=== PATIENT | male | born 1955 ===

== ENCOUNTER 2016-11-15 06:18 | Observation (INO) | payer MEDICARE ==
[2016-08-12 08:23] VITALS: BMI 30.5
[2016-11-15] MEDS ORDERED: Propofol 10 mg/ml Inj (20 ML) ONE (07:52)
[2016-11-15] MEDS ORDERED: Midazolam 2 MG/2 ML VIAL ONE (07:52)
[2016-11-15] MEDS: Bupivacaine 0.5% Inj(30mL) ONE ×2 (08:04→10:31)
[2016-11-15] MEDS: Iohexol 240 200 ML IJ ONE ×2 (08:04→08:50)
[2016-11-15] MEDS ORDERED: Lactated Ringer's 1,000 ML IV ONE ×2 (08:10→09:52)
[2016-11-15] MEDS: cefTRIAXone IV 1 gm in Dextros 50 ML IVPB ONE ×2 (08:13→08:20)
[2016-11-15] MEDS ORDERED: Rocuronium 10 mg/ml (10 ml) ONE (10:25)
[2016-11-15] MEDS ORDERED: Phenylephrine 10 mg/ml Inj ONE (10:26)
[2016-11-15] MEDS ORDERED: Gentamicin 80 mg in 0.9% NS 160 MG/200 ML BAG IVPB ONE (10:30)
--- NOTE | 2016-11-15 11:00 | PCM.SURG1 ---
Surgeon's Initial Post Op Note - Surgeon's Notes Surgeon: james farrar Gambling Dealer: haley cote Type of Anesthesia: General Endo Pre-Operative Diagnosis: L renal calculus Operative Findings: same Post-Operative Diagnosis: same Operation Performed: cysto, urethral dialtion, L ureteral catheterization. L percutaneous nephrostomy tube access. L percutaneous nephrolithotomy, ultrasonic lithotripsy. L nephrostogram Specimen/Specimens Removed: urine. L renal stones Estimated Blood Loss: EBL {In ML}: 250 Blood Products Given: N/A Post-Op Condition: Good Date of Surgery/Procedure: 11/15/16 Time of Surgery/Procedure: 10:45
[2016-11-15] MEDS ORDERED: Morphine 4 MG/ML VIAL IVP PRN (11:04)
[2016-11-15] MEDS: HYDROmorphone 0.5 mg/0.5 ml ISec IVP PRN ×2 (11:45→13:00)
--- NOTE | 2016-11-15 11:45 | RAD ---
PROCEDURE: Intraoperative fluoroscopy HISTORY: LT. RENAL CALCULUS COMPARISON: Not available TECHNIQUE: Intraoperative fluoroscopy was provided for percutaneous left nephrostomy. Total time of fluoroscopy was 319.2 seconds. FINDINGS: Multiple fluoroscopic spot films are submitted demonstrating placement of left percutaneous nephro ureterostomy. Films are on file for review. IMPRESSION: Fluoroscopy provided.
[2016-11-15] MEDS: Dextrose 5%/0.45% NS 1,000 ML IV SCH ×2 (14:00→21:59)
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
[2016-11-15 20:07] LABS: BASO % 0.1 % (0.0-2.0); EOS % 0.1 % (0.0-4.0); HEMATOCRIT 38.5 % (35.0-51.0); LYMPH # 1.1 K/uL (1.0-4.3); LYMPH % 8.2 % (20.0-40.0); MEAN CELL VOLUME 88.8 fL (80.0-94.0); MEAN CORPUSCULAR HGB CONC 34.9 g/dL (33.0-37.0); MEAN PLATELET VOLUME 9.3 fL (7.2-11.7); MONO # 0.7 K/uL (0.0-0.8); MONO % 5.3 % (0.0-10.0); PLATELET COUNT 191 K/uL (130-400); RED CELL DISTRIBUTION WIDTH 12.7 % (11.5-14.5); WHITE BLOOD COUNT 13.3 K/uL (4.8-10.8)
[2016-11-15 20:17] LABS: CHLORIDE 104 mmol/L (98-107); SODIUM 137 mmol/L (132-148)
[2016-11-15 20:20] LABS: ALB/GLOB RATIO 1.3 (1.0-2.1); ALKALINE PHOSPHATASE 58 U/L (38-126); ALT/SGPT 47 U/L (21-72); AST/SGOT 26 U/L (17-59); BILIRUBIN,TOTAL 0.9 mg/dL (0.2-1.3); BLOOD UREA NITROGEN 13 mg/dL (9-20); CARBON DIOXIDE 20 mmol/L (22-30); GFR AFRICAN-AMERICAN > 60; GLUCOSE,RANDOM 164 mg/dL (75-110); TOTAL PROTEIN 5.9 g/dL (6.3-8.3)
[2016-11-15 20:21] LABS: CALCIUM 8.3 mg/dl (8.6-10.4)
[2016-11-15 21:50] LABS: NEUTROPHIL 82 % (50-75); TOTAL CELLS COUNTED 100
[2016-11-15] MEDS: Pantoprazole 40 mg EC Tab PO SCH (21:51)
[2016-11-16] MEDS: Dextrose 5%/0.45% NS 1,000 ML IV SCH ×4 (00:35→19:40)
[2016-11-16 06:19] LABS: BASO % 0.2 % (0.0-2.0); EOS # 0.2 K/uL (0.0-0.7); EOS % 1.6 % (0.0-4.0); HEMATOCRIT 33.1 % (35.0-51.0); LYMPH # 2.3 K/uL (1.0-4.3); LYMPH % 21.6 % (20.0-40.0); MEAN CELL VOLUME 88.6 fL (80.0-94.0); MEAN CORPUSCULAR HEMOGLOBIN 31.7 pg (27.0-31.0); MEAN CORPUSCULAR HGB CONC 35.8 g/dL (33.0-37.0); MEAN PLATELET VOLUME 8.8 fL (7.2-11.7); MONO % 9.2 % (0.0-10.0); RED CELL DISTRIBUTION WIDTH 12.6 % (11.5-14.5); WHITE BLOOD COUNT 10.5 K/uL (4.8-10.8)
[2016-11-16 06:30] LABS: BLOOD UREA NITROGEN 14 mg/dL (9-20); CALCIUM 7.7 mg/dl (8.6-10.4); CARBON DIOXIDE 22 mmol/L (22-30); CHLORIDE 103 mmol/L (98-107); GFR AFRICAN-AMERICAN > 60; GLUCOSE,RANDOM 125 mg/dL (75-110); POTASSIUM 3.7 mmol/L (3.6-5.2); SODIUM 135 mmol/L (132-148)
--- NOTE | 2016-11-16 07:41 | CP.PCM.PN ---
<Steve Dumont - Last Filed: 11/16/16 07:33> Subjective - Date & Time of Evaluation Date of Evaluation: 11/16/16 Time of Evaluation: 07:34 - Subjective Subjective: PGY1 Medicine Note for Dr. Lauro Taylor Patient seen and examined this morning at bedside. Patient states he feels great and has no complaints. He would like to go home as soon as possible. Denies f/c, n/v, d/c, sob or cp. Objective - Vital Signs/Intake and Output Vital Signs (last 24 hours): Temp Pulse Resp BP Pulse Ox 98.5 F 100 H 20 97/62 L 93 L 11/16/16 05:21 11/16/16 05:21 11/16/16 05:21 11/16/16 05:21 11/16/16 05:21 Intake and Output: 11/16/16 11/16/16 06:59 18:59 Intake Total 1740 Output Total 1500 Balance 240 - Medications Medications: Current Medications Acetaminophen (Tylenol 325mg Tab) 650 mg PO Q6 PRN PRN Reason: Fever >100.4 F Docusate Sodium (Colace) 100 mg PO DAILY [facility] Hydromorphone HCl (Dilaudid) 0.5 mg IVP Q15M PRN PRN Reason: Pain, severe (8-10) Last Admin: 11/15/16 13:00 Dose: 0.5 mg Dextrose/Sodium Chloride (Dextrose 5%/0.45% Ns 1000 Ml) 1,000 mls @ 150 mls/hr IV .Q6H40M [facility] Last Admin: 11/16/16 05:49 Dose: 150 mls/hr Ceftriaxone Sodium (Rocephin Iv 1 Gm Duplex) 50 mls @ 100 mls/hr IVPB DAILY [facility] Morphine Sulfate (Morphine) 4 mg IVP Q4 PRN PRN Reason: Pain, moderate (4-7) Ondansetron HCl (Zofran Inj) 4 mg IVP Q4 PRN PRN Reason: Nausea/Vomiting Last Admin: 11/15/16 19:34 Dose: 4 mg Pantoprazole Sodium (Protonix Ec Tab) 40 mg PO DAILY [facility] Last Admin: 11/15/16 21:51 Dose: 40 mg Rosuvastatin Calcium (Crestor) 10 mg PO HS [facility] Last Admin: 11/15/16 21:59 Dose: 10 mg - Labs Labs: 11/16/16 06:11 11/16/16 06:11 - Constitutional Appears: Non-toxic, No Acute Distress - Head Exam Head Exam: ATRAUMATIC, NORMOCEPHALIC - Eye Exam Eye Exam: EOMI - ENT Exam ENT Exam: Mucous Membranes Moist - Respiratory Exam Respiratory Exam: Clear to Ausculation Bilateral, NORMAL BREATHING PATTERN. absent: Accessory Muscle Use, Wheezes, Respiratory Distress - Cardiovascular Exam Cardiovascular Exam: REGULAR RHYTHM, +S1, +S2 - GI/Abdominal Exam GI & Abdominal Exam: Soft, Normal Bowel Sounds. absent: Distended, Firm, Guarding, Tenderness - Exam Additional comments: Feldman cath removed this morning. - Neurological Exam Neurological Exam: Alert, Awake, Oriented x3 - Psychiatric Exam Psychiatric exam: Normal Affect, Normal Mood - Skin Skin Exam: Dry, Normal Color, Warm Assessment and Plan - Assessment and Plan (Free Text) Plan: S/p L. Percutanous Nephrolithotomy for a Staghorn calculous * [place]) reccs * Feldman Cath removed this morning * Patient is to ambulate OOB today * Hgb decreased to 11.8 today from 13.4 (8 PM labs) HLD * Crestor 10mg PO QD Hx of DVT * IVC filter in place * No other therapy needed at this time GERD * Protonix 40mg PO QD * Regular Diet HTN * Monitor BP Steve Dumont PGY1 <Delvis Taylor - Last Filed: 11/16/16 20:53> Objective - Vital Signs/Intake and Output Vital Signs (last 24 hours): Temp Pulse Resp BP Pulse Ox 97.9 F 119 H 20 122/72 95 11/16/16 16:37 11/16/16 16:37 11/16/16 16:37 11/16/16 16:37 11/16/16 16:37 Intake and Output: 11/16/16 11/17/16 18:59 06:59 Intake Total 2490 Output Total 1950 Balance 540 - Medications Medications: Current Medications Acetaminophen (Tylenol 325mg Tab) 650 mg PO Q6 PRN PRN Reason: Fever >100.4 F Docusate Sodium (Colace) 100 mg PO DAILY [facility] Last Admin: 11/16/16 09:58 Dose: 100 mg Dextrose/Sodium Chloride (Dextrose 5%/0.45% Ns 1000 Ml) 1,000 mls @ 150 mls/hr IV .Q6H40M [facility] Last Admin: 11/16/16 12:48 Dose: 150 mls/hr Ceftriaxone Sodium (Rocephin Iv 1 Gm Duplex) 50 mls @ 100 mls/hr IVPB DAILY [facility] Last Admin: 11/16/16 10:01 Dose: 100 mls/hr Ketorolac Tromethamine (Toradol) 30 mg IVP Q6 PRN PRN Reason: Pain, severe (8-10) Ketorolac Tromethamine (Toradol) 15 mg IVP Q6 PRN PRN Reason: Pain, moderate (4-7) Ondansetron HCl (Zofran Inj) 4 mg IVP Q4 PRN PRN Reason: Nausea/Vomiting Last Admin: 11/15/16 19:34 Dose: 4 mg Pantoprazole Sodium (Protonix Ec Tab) 40 mg PO DAILY [facility] Last Admin: 11/16/16 09:58 Dose: 40 mg Rosuvastatin Calcium (Crestor) 10 mg PO [facility] Last Admin: 11/15/16 21:59 Dose: 10 mg - Labs Labs: 11/16/16 06:11 11/16/16 06:11 Attending/Attestation - Attestation I have personally seen and examined this patient.: Yes I have fully participated in the care of the patient.: Yes I have reviewed all pertinent clinical information, including history, physical exam and plan: Yes Notes (Text): 11/16/16 20:45 Patient was seen and examined at 2:45 PM 11/16/16 Currently upon FULL ROS: Some mild soreness at the entry site of the left nephrolithotomy Moving his bowels NO n/v NO burning/pain with urination NO other complaints Exam: General: AAOx3, NAD HEENT: NCA, EOMI, PERRLA, NO cervical/supraclavicular/submandibular lymphadenopathy, NO pharyngeal erythema/exudate, Mucous Membranes are moist, Nasal Turbinates are nonedematous/nonerythematous Cardio: NS1 and NS2, NO M/R/G Respiratory: CTA B/L, NO R/R/W GI: BSx4, Soft, NT, ND, NO HSM, NO guarding/rebound tenderness Ext: NO edema, Pulses are strong and equal, Capillary Refill is 2 seconds Neuro: CN II through XII are grossly intact Skin: entry site of the left nephrolithotomy in the left flank is dry with no purulence/signs of cellulitis Assessments: S/P Left Nephrolithotomy: Ceftriaxone 1 gm IV 1x/day, Urine Culture shows NO growth HTN: not on any medications at home, controlled with some tachycardia in the low 100s HLD: Crestor 10 mg PO QHS (on Lipitor 10 mg PO QHS at home) Hx DVT: IVC Filter I spoke with Urologist Dr. Gwen Ventura (whom Medicine Team admitted for on 11/15): if no fevers by 11/17/16, then will discharge patient on Levaquin 500 mg PO 1x/day and Dr. Gwen Ventura will arrange for Nephrostogram and arrange for subsequent removal of Left Nephrolithotomy Tube as long as Nephrostogram does not show any retained pieces of the stone. Delvis Taylor D.O.
[2016-11-16] MEDS: Pantoprazole 40 mg EC Tab PO SCH (09:58)
[2016-11-16] MEDS: cefTRIAXone IV 1 gm in Dextros 50 ML IVPB SCH (10:01)
[2016-11-16 11:10] LABS: RBC URINE 2 /hpf (0-3); URINE BILIRUBIN NEGATIVE (NEGATIVE); URINE BLOOD 2+ (NEGATIVE); URINE COLOR Straw (YELLOW); URINE GLUCOSE (UA) NORMAL (Normal); URINE KETONE NEGATIVE (NEGATIVE); URINE LEUKOCYTE ESTERASE 2+ Leu/uL (Negative); URINE PROTEIN NEGATIVE (NEGATIVE); URINE UROBILINOGEN NORMAL mg/dL (0.2-1.0); WBC URINE 12 /hpf (0-5)
[2016-11-17 01:48] VITALS: RESP 20
[2016-11-17] MEDS: Dextrose 5%/0.45% NS 1,000 ML IV SCH ×2 (02:19→14:02)
[2016-11-17 08:46] LABS: BASO % 0.4 % (0.0-2.0); EOS # 0.5 K/uL (0.0-0.7); HEMATOCRIT 34.7 % (35.0-51.0); LYMPH # 2.2 K/uL (1.0-4.3); LYMPH % 24.6 % (20.0-40.0); MEAN CELL VOLUME 89.1 fL (80.0-94.0); MEAN CORPUSCULAR HEMOGLOBIN 31.9 pg (27.0-31.0); MEAN CORPUSCULAR HGB CONC 35.8 g/dL (33.0-37.0); MEAN PLATELET VOLUME 8.9 fL (7.2-11.7); MONO # 0.9 K/uL (0.0-0.8); MONO % 9.9 % (0.0-10.0); RED CELL DISTRIBUTION WIDTH 12.7 % (11.5-14.5); WHITE BLOOD COUNT 8.7 K/uL (4.8-10.8)
[2016-11-17 08:51] LABS: CHLORIDE 107 mmol/L (98-107)
[2016-11-17 08:52] LABS: POTASSIUM 3.7 mmol/L (3.6-5.2); SODIUM 140 mmol/L (132-148)
[2016-11-17 08:54] LABS: ALB/GLOB RATIO 1.1 (1.0-2.1); ALKALINE PHOSPHATASE 66 U/L (38-126); AST/SGOT 21 U/L (17-59); BLOOD UREA NITROGEN 9 mg/dL (9-20); CARBON DIOXIDE 22 mmol/L (22-30); GFR AFRICAN-AMERICAN > 60; TOTAL PROTEIN 6.5 g/dL (6.3-8.3)
[2016-11-17 08:55] LABS: ALT/SGPT 36 U/L (21-72); CALCIUM 8.8 mg/dl (8.6-10.4); GLUCOSE,RANDOM 135 mg/dL (75-110); MAGNESIUM 1.9 mg/dL (1.6-2.3); PHOSPHOROUS 2.4 mg/dL (2.5-4.5)
[2016-11-17 09:15] VITALS: BP 137/89; PULSE 103; TEMP 97.5; O2SAT 96
[2016-11-17] MEDS: Pantoprazole 40 mg EC Tab PO SCH (09:46)
[2016-11-17] MEDS: cefTRIAXone IV 1 gm in Dextros 50 ML IVPB SCH (09:47)
[2016-11-17] MEDS ORDERED: Bisacodyl 5mg EC Tab PO ONE (13:14)
--- NOTE | 2016-11-17 13:14 | CP.PCM.DIS ---
Provider - Provider Date of Admission: 11/15/16 11:39 Attending physician: Delvis Taylor MD Primary care physician: In [place], patient can not remember name Consults: Urology Dr. Sudheer Ventura Time Spent in preparation of Discharge (in minutes): 40 Hospital Course - Lab Results Lab Results: Micro Results 11/15/16 15:20 Urine,Catheterized Urine Culture - Final No Growth (<1,000 CFU/ML) Most Recent Lab Values WBC 8.7 K/uL (4.8-10.8) 11/17/16 08:28 RBC 3.89 Mil/uL (4.40-5.90) L 11/17/16 08:28 Hgb 12.4 g/dL (12.0-18.0) 11/17/16 08:28 Hct 34.7 % (35.0-51.0) L 11/17/16 08:28 MCV 89.1 fL (80.0-94.0) 11/17/16 08:28 MCH 31.9 pg (27.0-31.0) H 11/17/16 08:28 MCHC 35.8 g/dL (33.0-37.0) 11/17/16 08:28 RDW 12.7 % (11.5-14.5) 11/17/16 08:28 Plt Count 164 K/uL (130-400) 11/17/16 08:28 MPV 8.9 fL (7.2-11.7) 11/17/16 08:28 Neut % (Auto) 59.1 % (50.0-75.0) 11/17/16 08:28 Lymph % (Auto) 24.6 % (20.0-40.0) 11/17/16 08:28 [place] % (Auto) 9.9 % (0.0-10.0) 11/17/16 08:28 Eos % (Auto) 6.0 % (0.0-4.0) H 11/17/16 08:28 Baso % (Auto) 0.4 % (0.0-2.0) 11/17/16 08:28 Neut # 5.2 K/uL (1.8-7.0) 11/17/16 08:28 Lymph # 2.2 K/uL (1.0-4.3) 11/17/16 08:28 [place] # 0.9 K/uL (0.0-0.8) H 11/17/16 08:28 Eos # 0.5 K/uL (0.0-0.7) 11/17/16 08:28 Baso # 0.0 K/uL (0.0-0.2) 11/17/16 08:28 Neutrophils % (Manual) 82 % (50-75) H 11/15/16 19:57 Lymphocytes % (Manual) 10 % (20-40) L 11/15/16 19:57 Monocytes % (Manual) 8 % (0-10) 11/15/16 19:57 Platelet Estimate Normal (NORMAL) 11/15/16 19:57 Sodium 140 mmol/L (132-148) 11/17/16 08:28 Potassium 3.7 mmol/L (3.6-5.2) 11/17/16 08:28 Chloride 107 mmol/L (98-107) 11/17/16 08:28 Carbon Dioxide 22 mmol/L (22-30) 11/17/16 08:28 Anion Gap 16 (10-20) 11/17/16 08:28 BUN 9 mg/dL (9-20) 11/17/16 08:28 Creatinine 1.0 MG/DL (0.8-1.5) 11/17/16 08:28 Est GFR ( Amer) > 60 11/17/16 08:28 Est GFR (Non-Af Amer) > 60 11/17/16 08:28 Random Glucose 135 mg/dL (75-110) H 11/17/16 08:28 Calcium 8.8 mg/dl (8.6-10.4) 11/17/16 08:28 Phosphorus 2.4 mg/dL (2.5-4.5) L 11/17/16 08:28 Magnesium 1.9 mg/dL (1.6-2.3) 11/17/16 08:28 Total Bilirubin 1.0 mg/dL (0.2-1.3) 11/17/16 08:28 AST 21 U/L (17-59) 11/17/16 08:28 ALT 36 U/L (21-72) 11/17/16 08:28 Alkaline Phosphatase 66 U/L (38-126) 11/17/16 08:28 Total Protein 6.5 g/dL (6.3-8.3) 11/17/16 08:28 Albumin 3.5 g/dL (3.5-5.0) 11/17/16 08:28 Globulin 3.0 gm/dL (2.2-3.9) 11/17/16 08:28 Albumin/Globulin Ratio 1.1 (1.0-2.1) 11/17/16 08:28 Urine Color Straw (YELLOW) 11/16/16 10:59 Urine Clarity Clear (Clear) 11/16/16 10:59 Urine pH 6.0 (5.0-8.0) 11/16/16 10:59 Ur Specific [place] 1.008 (1.003-1.030) 11/16/16 10:59 Urine Protein Negative mg/dL (NEGATIVE) 11/16/16 10:59 Urine Glucose (UA) Normal mg/dL (Normal) 11/16/16 10:59 Urine Ketones Negative mg/dL (NEGATIVE) 11/16/16 10:59 Urine Blood 2+ (NEGATIVE) H 11/16/16 10:59 Urine Nitrate Negative (NEGATIVE) 11/16/16 10:59 Urine Bilirubin Negative (NEGATIVE) 11/16/16 10:59 Urine Urobilinogen Normal mg/dL (0.2-1.0) 11/16/16 10:59 Ur Leukocyte Esterase 2+ [place]/uL (Negative) H 11/16/16 10:59 Urine WBC (Auto) 12 /hpf (0-5) H 11/16/16 10:59 Urine RBC (Auto) 2 /hpf (0-3) 11/16/16 10:59 - Hospital Course Hospital Course: Patient was seen and examined at 1:00 PM 11/17/16 Patient is a 61 year old gentleman with a PMH of HLD, HTN, GERD, DVT in 2001 and Nephrolithiasis was admitted to Hospitalist Service at the request of Urologist Dr. Sudheer Ventura S/P Left Percutanous Nephrolithotomy for a staghorn calculus on 11/15/16. Patient did well post op. There were no fevers and his urine culture was negative. I spoke with Dr. Sudheer Ventura on 11/16/16 and he would like for patient to continue antibiotic Levaquin 500 mg PO 1x/day for 7 days and have patient contact him for removal of the Nephrolithotomy tube. Currently upon FULL ROS: Some mild soreness at the entry site of the left nephrolithotomy States that he has not moved his bowels since the procedure (please note that he told me yesterday 11/16/16 that he did move his bowels) NO n/v NO burning/pain with urination NO other complaints Exam: General: AAOx3, NAD HEENT: NCA, EOMI, PERRLA, NO cervical/supraclavicular/submandibular lymphadenopathy, NO pharyngeal erythema/exudate, Mucous Membranes are moist, Nasal Turbinates are nonedematous/nonerythematous Cardio: NS1 and NS2, NO M/R/G Respiratory: CTA B/L, NO R/R/W GI: BSx4, Soft, NT, ND, NO HSM, NO guarding/rebound tenderness Ext: NO edema, Pulses are strong and equal, Capillary Refill is 2 seconds Neuro: CN II through XII are grossly intact Skin: entry site of the left nephrolithotomy in the left flank is dry with no purulence/signs of cellulitis Assessments: S/P Left Nephrolithotomy: Ceftriaxone 1 gm IV 1x/day, Urine Culture shows NO growth. Will discharge on Levaquin 500 mg PO 1x/day. I spoke with Nurse Karlee and she will change bandages around nephrolithotomy site and provide patient with a leg sánchez bag prior to discharge. HTN: not on any medications at home, controlled with some tachycardia in the low 100s HLD: Crestor 10 mg PO QHS (on Lipitor 10 mg PO QHS at home of which he states that he has enough of) Hx DVT: IVC Filter C/O Constipation: dose of Dulcolax 5 mg was ordered immediately after my exam. I spoke with Urologist Dr. Gwen Ventura (whom Medicine Team admitted for on 11/15): if no fevers by 11/17/16, then will discharge patient on Levaquin 500 mg PO 1x/day and Dr. Gwen Ventura will arrange for Nephrostogram and arrange for subsequent removal of Left Nephrolithotomy Tube as long as Nephrostogram does not show any retained pieces of the stone. The following instructions were explained to the patient and copy of the instructions should also be provided to the patient: 1). Please call Dr. Gwen Ventura on Friday11/18/16 morning at [phone] to schedule with him an appointment to have your left nephrolithotomy tube removed. 2). Please have the following prescriptions filled at your pharmacy and take as directed: Levaquin 500 mg, 1 tablet by mouth 1x/day with breakfast, Disp #7, NO refills Colace 100 mg, 1 tablet by mouth 2x/day (with breakfast and with dinner), Disp # 14, NO refills (you may stop this medication once you are having regular bowel movements) 3). Please ask your pharmacist which probiotic he/she recommends and take every day with lunch for the next 37 days. 4). Please continue the following home medications which you stated that you had enough of: Atorvastatin 10 mg, 1 tablet by mouth every night Aspirin 81 mg, 1 tablet by mouth 1x/day Pepcid 20 mg, 1 tablet by mouth 1x/day 5). Please make sure to follow up with your primary care doctor located in [place], [place] in the next 7 to 10 days 6). Please take care and be well. Delvis Taylor D.O. Discharge Exam - Head Exam Head Exam: ATRAUMATIC, NORMOCEPHALIC Discharge Plan - Follow Up Plan Condition: GOOD Disposition: HOME/ ROUTINE Instructions: Kidney Stones (DC), Regular Diet (DC), Nephrostomy Tube Care (DC) , Nephrostomy Tube Care (GEN)
--- NOTE | 2016-11-17 18:27 | RAD ---
HISTORY: Urolithiasis COMPARISON: Comparison is made to the previous study dated 07/16/2016 FINDINGS: BOWEL: Mild constipation is noted. BONES: Normal. OTHER FINDINGS: The patient is likely status post left nephrostomy tubes and left ureter stent. IMPRESSION: Catheter overlying the left abdomen likely represent informed STEMI tube and left ureter stent.
--- NOTE | 2016-11-18 05:48 | OP ---
PROCEDURE DATE: 11/15/2016 PREOPERATIVE DIAGNOSES: Left renal lower pole and pelvic branching renal calculus. POSTOPERATIVE DIAGNOSES: Left renal lower pole and pelvic branching renal calculus. PROCEDURE: Cystoscopy with insertion of left ureteral catheter. OPERATING SURGEON: Dr. Gwen Ventura. TYPE OF ANESTHESIA: The patient received general anesthesia. DESCRIPTION OF PROCEDURE: The patient received perioperative antibiotics. The patient was placed in lithotomy position. Procedure was performed under fluoroscopic control with C-arm. A 22-Burkinan cystoscope sheath was introduced under direct vision, and urethra, prostate, and bladder were inspected with 30-degree lens. FINDINGS: There was a mild stricture in the anterior urethra, which was dilated over an ureteral catheter. Prostatic urethra was inspected. Prostatic urethra was approximately 3 cm in length and mildly occlusive. There was no bladder tumor. There was no bladder stone. The left ureteral orifice was then identified. A 0.03 inch guidewire as well as a 6-inch open-end catheter over the wire were inserted into the ureter and passed up to the level of the kidney under fluoroscopic control. Proper position was confirmed with fluoroscopy. Cystoscope sheath removed. A Feldman catheter was inserted. The ureteral catheter was secured to the Feldman catheter with silk suture. The patient was returned to supine position. The remainder of the procedure will be dictated in a separate report. Gwen Ventura MD
--- NOTE | 2016-11-18 08:06 | OP ---
PROCEDURE DATE: 11/15/2016 PREOPERATIVE DIAGNOSIS: Left lower pole and renal pelvic branching calculus. POSTOPERATIVE DIAGNOSIS: Left lower pole and renal pelvic branching calculus. PROCEDURE: Left percutaneous nephrostomy tube access insertion. Left percutaneous nephrolithotomy with ultrasonic lithotripsy. Left nephrostogram. DESCRIPTION OF PROCEDURE: Procedure was performed by video endoscopic control as well as under fluoroscopic control with C-arm. The patient had received general anesthesia via the endotracheal tube for performance of the cystoscopy. The patient was now placed in prone position on the operating room table. The left flank was prepped and draped in sterile fashion. Using biplanar fluoroscopy, the lower pole access to the kidney was obtained using a triangulation technique. The access was obtained on the first puncture with the access needle. Irrigation of the ureteral catheter from below with saline revealed drainage through the nephrostomy access needle. A guidewire was inserted into the collecting system to the lower pole where the stone was located. The guidewire was passed into the pelvis and into the upper pole under fluoroscopic guidance. Dilation of the nephrostomy tract was performed over the guidewire using flexible fascial dilator starting at 6 inch and proceeding to 10-Djiboutian. After the 10-Djiboutian, 12-Djiboutian coaxial safety guidewire introducer was inserted. A second guidewire was inserted to the upper pole as well. Balloon dilation of the nephrostomy tract to size 30-Djiboutian was performed using the balloon dilatation catheter. The Amplatz sheet was inserted over the balloon. Nephroscopy was performed using the 0-degree offset right angle nephroscope. The stone was encountered in the lower pole and the renal pelvis. Ultrasonic lithotripsy was performed. There was noted to be a hard stone. Multiple fragments were removed using grasping forceps. The bulk of the stone was removed using ultrasonic lithotriptor. The stones were removed from the renal pelvis. Some fragments went to the upper pole, which were removed as well with the ultrasonic lithotriptor. Lower pole fragments were removed as well. The nephroscope was inserted. A guidewire was inserted through the ureteral catheter. The guidewire was visualized within the renal pelvis and grasped with the grasping forceps under microscopic control. The guidewire was delivered through the nephroscope sheath, thus securing through and through control through urethra and via the nephrostomy tube. Further ultrasonic lithotripsy was performed until all of the endoscopically identified stones were removed. There were residual fragments identified on fluoroscopy. The nephroscope was removed. A 24-Djiboutian Malecot reentry nephrostomy tube was inserted over the guidewire. Proper position of the nephrostomy tube within renal pelvis was confirmed with nephrostogram. There was no extravasation. The nephrostomy tube was noted to be in good position. The guidewire was removed. Nephrostomy tube was secured to the skin with interrupted sutures of silk. Marcaine was infiltrated for postoperative analgesia as an intercostal block as well as the field block one which *------* tube. A sterile dressing was applied. Estimated blood loss approximately 250 mL. Complications of surgery none. The patient tolerated the procedure without complication. Gwen Ventura MD
== END 2016-11-17 15:05 | disposition home or self-care (01) ==
LOC: C.SDS 06:18 → EDSTATUS 07:45 → C.9S 11:39 → INTOOBSV 11:39 → C.6T 17:48
PROVIDERS: ADMIT Family Medicine; ATTEND Family Medicine
DX: N20.0 Calculus of kidney (principal); I12.9 Hypertensive chronic kidney disease with stage 1 through stage 4 chronic kidney disease, or unspecified chronic kidney disease; N18.9 Chronic kidney disease, unspecified; E78.5 Hyperlipidemia, unspecified
CPT/HCPCS: 36415; 50080; 50395; 74020; 76000; 80048; 80053; 81001; 82355; 82365; 83735; 84100; 85025; 87086; G0378; J0696; J1170; J1580; J2175; J2250; J2370; J2405; J2704; J3010; J7042; J7120; Q9966

== ENCOUNTER 2016-12-30 06:44 | Inpatient (IN) | payer MEDICARE ==
[2016-09-20 11:44] VITALS: BMI 30.5
[2016-12-30] MEDS ORDERED: Iohexol 240 (50 ml) ONE ×3 (07:41→10:57)
[2016-12-30] MEDS ORDERED: Lidocaine 2% Jelly (Uro-Jet) ONE (07:41)
[2016-12-30] MEDS: cefTRIAXone IV 1 gm in Dextros 50 ML IVPB ONE ×2 (07:55→11:10)
[2016-12-30] MEDS ORDERED: Lactated Ringer's 1,000 ML IV ONE ×3 (07:55→11:30)
[2016-12-30 08:54] LABS: BASO % 0.3 % (0.0-2.0); EOS # 0.5 K/uL (0.0-0.7); EOS % 10.9 % (0.0-4.0); HEMATOCRIT 40.2 % (35.0-51.0); MEAN CELL VOLUME 88.6 fL (80.0-94.0); MEAN CORPUSCULAR HEMOGLOBIN 30.6 pg (27.0-31.0); MEAN CORPUSCULAR HGB CONC 34.5 g/dL (33.0-37.0); MEAN PLATELET VOLUME 8.7 fL (7.2-11.7); MONO # 0.4 K/uL (0.0-0.8); MONO % 9.6 % (0.0-10.0); RED CELL DISTRIBUTION WIDTH 12.8 % (11.5-14.5); WHITE BLOOD COUNT 4.6 K/uL (4.8-10.8)
[2016-12-30 09:09] LABS: CHLORIDE 106 mmol/L (98-107); SODIUM 142 mmol/L (132-148)
[2016-12-30 09:12] LABS: ALB/GLOB RATIO 1.3 (1.0-2.1); ALKALINE PHOSPHATASE 81 U/L (38-126); ALT/SGPT 38 U/L (21-72); AST/SGOT 29 U/L (17-59); BLOOD UREA NITROGEN 16 mg/dL (9-20); CARBON DIOXIDE 21 mmol/L (22-30); GFR AFRICAN-AMERICAN > 60; GLUCOSE,RANDOM 86 mg/dL (75-110); TOTAL PROTEIN 7.3 g/dL (6.3-8.3)
[2016-12-30 09:13] LABS: CALCIUM 9.4 mg/dl (8.6-10.4)
[2016-12-30] MEDS ORDERED: Gentamicin 160 MG in Sodium Chloride 0.9% 100 ML IVPB ONE (10:30)
[2016-12-30] MEDS ORDERED: Propofol 10 mg/ml Inj (20 ML) ONE (10:41)
[2016-12-30] MEDS ORDERED: Succinylcholine Chloride 20 mg/ml Syr (5 ml) IV ONE (10:41)
[2016-12-30] MEDS ORDERED: Lidocaine Hydrochloride 5 ML INJ ONE (10:41)
[2016-12-30] MEDS ORDERED: cefTRIAXone IV 1 gm in Dextros 50 ML IVPB ONE (10:42)
[2016-12-30] MEDS ORDERED: Bupivacaine HCl 0.5% PF (10 ml) Inj ONE ×2 (10:56)
--- NOTE | 2016-12-30 11:37 | RAD ---
HISTORY: LT. RENAL CALCULI COMPARISON: Abdomen with obliques performed 11/29/16 FINDINGS: Nonobstructive bowel gas pattern. Lamellated gallstone within the right upper quadrant. IVC filter. Left percutaneous nephro urostomy tube. Multiple probable left renal calculi appear grossly similar to prior study. Nonobstructive bowel gas pattern. Partially imaged right femur hardware. IMPRESSION: Left nephro re- ureterostomy with multiple calculi re-identified in the proximal left ureter. Numerous renal calculi also evident. IVC filter. Lamellated gallstone within the right upper quadrant.
[2016-12-30] MEDS ORDERED: Phenylephrine 10 mg/ml Inj ONE (11:54)
[2016-12-30] MEDS ORDERED: HYDROmorphone 0.5 mg/0.5 ml ISec IVP PRN (12:45)
--- NOTE | 2016-12-30 12:49 | PCM.SURG1 ---
Surgeon's Initial Post Op Note - Surgeon's Notes Surgeon: james farrar Sound System Installer: none Type of Anesthesia: General Endo Pre-Operative Diagnosis: L renal calculi. L ureteral calculi Operative Findings: same Post-Operative Diagnosis: same Operation Performed: L percutaneous nephrostomy, rigid and flexible. Rigid and flexible ureteroscopy. Removal of renal and ureteral stones. nephrostogram Specimen/Specimens Removed: urine. stones Estimated Blood Loss: EBL {In ML}: 30 Blood Products Given: N/A Post-Op Condition: Good Date of Surgery/Procedure: 12/30/16 Time of Surgery/Procedure: 12:35
--- NOTE | 2016-12-30 14:23 | RAD ---
PROCEDURE: Intraoperative Fluoroscopy. HISTORY: LT. RENAL CALCULI/URETER FINDINGS: Fluoroscopic assistance was provided for left percutaneous nephrostomy catheter placement.. Please refer to the operative report
[2016-12-30] MEDS: Potassium Ch 20mEq in D5-1/2NS 1,000 ML IV SCH ×3 (14:50→23:10)
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
[2016-12-30 20:32] VITALS: RESP 20
[2016-12-31 07:55] LABS: HEMATOCRIT 37.4 % (35.0-51.0); MEAN CORPUSCULAR HEMOGLOBIN 30.9 pg (27.0-31.0); MEAN CORPUSCULAR HGB CONC 34.7 g/dL (33.0-37.0); MEAN PLATELET VOLUME 8.5 fL (7.2-11.7); RED CELL DISTRIBUTION WIDTH 12.4 % (11.5-14.5)
[2016-12-31 08:08] VITALS: BP 110/66
[2016-12-31 08:10] VITALS: PULSE 20; TEMP 98.4; O2SAT 97
[2016-12-31 08:10] LABS: CHLORIDE 105 mmol/L (98-107); POTASSIUM 4.3 mmol/L (3.6-5.2); SODIUM 138 mmol/L (132-148)
[2016-12-31 08:13] LABS: BLOOD UREA NITROGEN 14 mg/dL (9-20); CARBON DIOXIDE 21 mmol/L (22-30); GFR AFRICAN-AMERICAN > 60; GLUCOSE,RANDOM 105 mg/dL (75-110)
[2016-12-31 08:14] LABS: CALCIUM 8.7 mg/dl (8.6-10.4)
--- NOTE | 2016-12-31 16:13 | CP.PCM.PN ---
Subjective - Date & Time of Evaluation Date of Evaluation: 12/31/16 Time of Evaluation: 11:00 - Subjective Subjective: Awake, alert, no acute pain or distress. Objective - Vital Signs/Intake and Output Vital Signs (last 24 hours): Temp Pulse Resp BP Pulse Ox 98.4 F 20 L 20 110/66 97 12/31/16 08:00 12/31/16 08:00 12/31/16 08:00 12/31/16 08:00 12/31/16 08:00 Intake and Output: 12/31/16 12/31/16 06:59 18:59 Intake Total 1080 1200 Output Total 1275 1000 Balance -195 200 - Medications Medications: Current Medications Famotidine (Pepcid) 20 mg PO DAILY PRN PRN Reason: Dyspepsia Rosuvastatin Calcium (Crestor) 5 mg PO HS [facility] Last Admin: 12/30/16 22:00 Dose: 5 mg - Labs Labs: 12/31/16 07:44 12/31/16 07:44 Assessment and Plan - Assessment and Plan (Free Text) Assessment: Patient is seen and examined. Alert , awake, denies any pain. Nephrostomy tube site intact, cleared by DR Ventura for discharge home today. D/W DR Chavez, plan to send home today on levaquin. Advised to follow up with DR Ventura in the office in 1 week.
--- NOTE | 2017-01-01 23:32 | PCM.URO ---
Urology Progress Note - General General: No Complaints, Tolerating Diet - Subjective Abdominal Pain: No Flank Pain: Yes (mild) Nausea: No Vomiting: No Voiding Well: Yes Dysuria: No Hematuria: No Good Stream: Yes Dsypnea: No Chest Pain: No Fever & Chills: No Other: Feeling well - Objective Lab Studies: Reviewed - Physical Exam Abdominal Exam: Soft, Non-Tender, Non-Distended Bowel Sounds: Normal Wound: Clean, Healing Well Back: No CVA Tenderness Genitalia: Without Inflammation Urine Color: Clear, Yellow Extremities: Normal: Bilateral - Male Phallus: Normal Scrotum: Normal Testes: Normal: Bilateral - Plan Discontinue Urinary Catheter: Yes (sánchez removed this am) Wound Care: Yes Catheter Care: Yes Ambulation - Out of Bed: Yes Intake & Output: Yes See Orders: Yes Additional Information: Imp: doing well. P: NT to leg bag. home today. Pt eager for discharge. outpt f/u. Discussed w pt and [facility] staff - Date & Time of Note Date: 12/31/16 Time: 10:30
--- NOTE | 2017-01-02 14:44 | OP ---
PROCEDURE DATE: 12/30/2016 PREOPERATIVE DIAGNOSES: Left renal calculi. Left ureteral calculi. POSTOPERATIVE DIAGNOSES: Left renal calculi. Left ureteral calculi. PROCEDURE: Left percutaneous nephrolithotomy. Left antegrade ureteroscopy and stone basketing and left nephrostogram. SURGEON: Dr. Gwen Ventura DESCRIPTION OF PROCEDURE: The patient was performed under video endoscopic control as well as under fluoroscopic control with C-arm. The patient received perioperative antibiotics. The patient received general anesthesia via endotracheal tube. Feldman catheter was inserted per urethra. The patient was then placed in the prone position. The left flank was prepped, draped in a sterile fashion. A 0.35-inch guidewire was inserted through the nephrostomy tube. Nephrostomy tube was withdrawn to the level of the skin where the access to the ureteral antegrade component of the reentry nephrostomy tube was accessed. The guidewire was inserted through the ureteral tail down to the bladder. Using the double lumen 10-Japanese ureteral catheter, a second guidewire was inserted down to the level of the bladder. Nephroscopy was performed using the 22-Japanese rigid nephroscope. Multiple stones within the renal pelvis as well as the lower pole deysi were identified. These were grasped individually with the rigid grasping forceps and removed. Further inspection of the renal pelvis and calyces were performed using the flexible nephroscope. Several other stones were identified within the deysi. Using the Tip Nitinol stone basket, the stones were removed. Attention was then turned toward the ureteral pelvic junction. Both wires were identified. The rigid cystoscope was used to access the proximal ureter. Multiple stones within the upper ureter were thus removed. There were noted to be other stones on fluoroscopy distal to those that could be accessed with the rigid cystoscope. Using the 16-Japanese flexible nephroscope, antegrade ureteroscopy was performed. Multiple other stones within the ureter were identified and removed with the stone basketing. The flat wire for wire basket was used. Additionally, the spiral basket was used. All stones within the ureter were removed. Ureteroscopy was then performed down to the level of the L5 vertebra using the flexible nephroscope. There were no further stones identified. There were further renal stones present on the fluoroscopic images within the renal collecting system. However, these could not be identified on endoscopy. A 16-Japanese reentry Malecot nephrostomy tube was inserted over the guidewire. Proper position was confirmed with nephrostogram. The nephrostomy tube was left in place. The guidewire was removed. Marcaine, 0.5% was infiltrated for postoperative analgesia. A sterile dressing was applied. The patient tolerated procedure without complication. Gwen Ventura MD
[2017-01-02 18:42] LABS: STONE SOURCE Left Renal Ureteral
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
== END 2016-12-31 16:50 | disposition home or self-care (01) | DRG 661 ==
LOC: C.SDS 06:44 → C.9S 13:24 → C.3T 20:03
PROVIDERS: ADMIT Internal Medicine; ATTEND Internal Medicine
PROC: 0TC78ZZ Extirpation of Matter from Left Ureter, Via Natural or Artificial Opening Endoscopic (ICD-10-PCS; 2016-12-30)
PROC: 0T778DZ Dilation of Left Ureter with Intraluminal Device, Via Natural or Artificial Opening Endoscopic (ICD-10-PCS; 2016-12-30)
PROC: 0TC13ZZ Extirpation of Matter from Left Kidney, Percutaneous Approach (ICD-10-PCS; principal; 2016-12-30 07:45)
DX: N20.0 Calculus of kidney (principal); Z93.0 Tracheostomy status; K21.9 Gastro-esophageal reflux disease without esophagitis; N18.9 Chronic kidney disease, unspecified; E78.00 Pure hypercholesterolemia, unspecified; Z86.718 Personal history of other venous thrombosis and embolism

== ENCOUNTER 2018-07-07 08:28 | Outpatient (CLI) | payer MEDICARE, OTHER | END 2018-07-07 08:29 | disposition home or self-care (01) | LOC: C.LAB 08:28 ==